=== PATIENT | female | born 1970 | race Caucasian/White ===

== ENCOUNTER 2018-11-08 12:06 | Day surgery (SDC) | payer OTHER ==
[~2018-11-08] VITALS: Ht 162.6 cm; Wt 89.0 kg
[2018-11-08 13:31] VITALS: Ht 162.6 cm; Wt 89.0 kg
[2018-11-08] MEDS ORDERED: ANXIETY MED (13:36)
[2018-11-08] MEDS ORDERED: SLEEP MED (13:36)
[2018-11-08] MEDS ORDERED: CHOLESTEROL MED (13:36)
[2018-11-08] MEDS ORDERED: SLEEP AID (13:36)
[2018-11-08 14:01] VITALS: BP 124/78; PULSE 77; RESP 18
[2018-11-08] MEDS ORDERED: DIPHENHYDRAMINE 50 MG INJ ONE (14:10)
--- NOTE | 2018-11-08 14:27 | HPN ---
Date/Time of Note Date/Time of Note DATE: 11/08/18 TIME: 14:27 Interval H&P Admission Note Pt. seen H&P reviewed: No system changes ANIBAL KEANE Nov 08, 2018 14:27
[2018-11-08] MEDS ORDERED: MIDAZOLAM 1 MG/ML 2 ML INJ ONE ×3 (14:45)
[2018-11-08] MEDS ORDERED: FENTAnyl 50 MCG/ML VIAL ONE ×2 (14:45)
== END 2018-11-08 15:16 | disposition home or self-care (01) ==
LOC: GIL 12:06
PROVIDERS: ATTEND Internal Medicine Gastroenterology
DX: K29.50 Unspecified chronic gastritis without bleeding (principal); K44.9 Diaphragmatic hernia without obstruction or gangrene
CPT/HCPCS: 43239; 88305; 88312; J1200; J2250; J3010; Z7610